=== PATIENT | male | born 1940 | race Caucasian/White ===

== ENCOUNTER → 2020-11-15 | Outpatient (CLI) | payer MEDICARE ==
[~2020-11-15] MED LIST: ASPI325T80 PO; FINA5TAB4 PO; HYDR-3237 PO; INSU100I11 SC; INSU100V8 SQ; LISI40TA9 PO; METF10002 PO; METO25TA35 PO; NAPR220T77 PO; OMEG1CAP6 PO; OMEP-110 PO; SIMV40TA20 PO; TAMS0.4C2 PO; TIOT18CA INH
== END | disposition home or self-care (01) ==
LOC: RAD 13:15
PROVIDERS: ATTEND Internal Medicine Cardiovascular Disease
DX: I26.99 Other pulmonary embolism without acute cor pulmonale (principal); I42.9 Cardiomyopathy, unspecified
CPT/HCPCS: 71045; 78582; A9540; A9558